=== PATIENT | female | born 1945 | race Caucasian/White ===

== ENCOUNTER 2019-10-27 15:28 | Outpatient (CLI) | payer MEDICARE, OTHER ==
[~2019-10-27 15:28] MED LIST: Gadobenate Dimeglumine 529 MG/1 ML (20ML VIAL) ONE
--- NOTE | 2019-10-27 17:15 | MRI ---
Exam: Brain MRI with and without contrast HISTORY: Bilateral sensorineural hearing loss COMPARISON: None FINDINGS: Brain MRI: Gradient echo sequence: No hemorrhage Calvarium: Appropriate T1 marrow signal intensity Midline brain parenchyma: Unremarkable Cerebrum:No parenchymal mass, mass effect or midline shift. Brain volume, age-appropriate. Cortical g ray-white matter differentiation is preserved. No significant T2 or FLAIR white matter hyperintensities Ventricles: No evidence of hydrocephalus. Sinuses and mastoid air cells: Minimal mucosal disease of the right maxillary sinus. Partial opacific ation of the right mastoid air cells. Diffusion: Central arterial flow is maintained. Absent restricted diffusion. Postcontrast images: No pathologic enhancement of the brain parenchyma. Internal auditory canal MRI: Symmetric signal intensity of the internal auditory canal and inner ear structures. No evidence of en hancement. Symmetric signal intensity of the 5th cranial nerve, 7 and 8 cranial nerve complexes. No abnormal enhancement. No evidence of an enhancing mass lesion. IMPRESSION: 1. Unremarkable pre and postcontrast brain MRI 2. Unremarkable pre and postcontrast MRI of the intra-articular canals. No abnormal enhancement or en hancing masses.
== END 2019-10-27 15:29 | disposition home or self-care (01) ==
LOC: BICMRI 15:28
PROVIDERS: ATTEND Nurse Practitioner Family
DX: H90.3 Sensorineural hearing loss, bilateral (principal); H93.19 Tinnitus, unspecified ear
CPT/HCPCS: 70553; 82565; A9577